=== PATIENT | male | born 2000 | race Caucasian/White ===

== ENCOUNTER 2025-03-30 10:11 | Emergency (ER) | payer SELFPAY ==
[~2025-03-30] VITALS: Ht 188 cm; Wt 74.0 kg
[2025-03-30 10:17] VITALS: O2SAT 100
[2025-03-30 10:41] VITALS: BP 127/80; PULSE 65; RESP 16; TEMP 36.8; O2SAT 99
[2025-03-30 11:15] LABS: BASOPHILS % 0.5 % (0.0-2.0); EOSINOPHILS % 2.0 % (0.0-5.0); HEMATOCRIT. 46.2 % (42.0-52.0); HEMOGLOBIN. 15.5 g/dL (14.0-18.0); LYMPHOCYTES % 17.6 % (20.0-50.0); MEAN PLATELET VOLUME 8.8 fl (7.4-10.4); MONOCYTES % 11.1 % (2.0-8.0); NEUTROPHILS % 68.8 % (40.0-76.0); PLATELET 259 x1000/uL (130-400); RED BLOOD CELL COUNT 5.10 mill/uL (4.7-6.1); RED CELL DISTRIBUTION WIDTH 13.5 % (11.6-14.6)
[2025-03-30 11:18] LABS: CREATININE 0.8 mg/dL (0.6-1.3)
[2025-03-30 11:19] LABS: PROTEIN TOTAL 7.6 g/dL (6.0-8.3); UREA NITROGEN BLOOD 6 mg/dL (9-23)
[2025-03-30 11:20] LABS: ASPARTATE AMINOTRANSFERASE 20 IU/L (<34); BILIRUBIN DIRECT < 0.1 mg/dL (<=3.0)
[2025-03-30 11:21] LABS: BILIRUBIN TOTAL 0.3 mg/dL (0.1-1.0)
[2025-03-30] MEDS: ONDANSETRON 4MG ODT PO ONE (12:36)
[2025-03-30 12:38] LABS: CLARITY URINE CLEAR (CLEAR); COLOR URINE YELLOW (YELLOW); GLUCOSE URINE NEGATIVE (NEGATIVE); KETONES URINE NEGATIVE (NEGATIVE); LEUKOCYTE ESTERASE URINE NEGATIVE (NEGATIVE); NITRITE URINE NEGATIVE (NEGATIVE); OCCULT BLOOD URINE NEGATIVE (NEGATIVE); PH URINE 8.5 (4.5-8.0); PROTEIN URINE NEGATIVE (NEGATIVE); SPECIFIC GRAVITY URINE 1.009 (1.005-1.030); UROBILINOGEN URINE 1.0 E.U./dL (0.2-1.0)
[2025-03-30] MEDS ORDERED: ONDA-239 PO (14:31)
[2025-03-30] MEDS ORDERED: FAMO-135 MT (14:31)
== END 2025-03-30 14:39 | disposition home or self-care (01) ==
LOC: ER 11:28
DX: R10.33 Periumbilical pain (principal); R11.10 Vomiting, unspecified
CPT/HCPCS: 80076; 80048; 81003; 83690; 85025; 36415; 74176; 99284; Q0162; Z7610 ×3